=== PATIENT | female | born 1945 | race Two or more races ===

== ENCOUNTER 2017-11-24 09:57 | Emergency (ER) | payer MEDICARE, MEDICAID ==
[2017-11-24 10:54] LABS: Urine WBC None Seen /hpf (0 - 5)
[2017-11-24 11:00] LABS: Basophils # (auto) 0 uL; Basophils % (auto) 0.8 % (0.0-2.0); Eosinophils # (auto) 0.2 uL; Hematocrit 42.4 % (36.0-46.0); Hemoglobin 14.2 g/dL (12.2-16.2); Lymphocytes # (auto) 1.2 uL; Lymphocytes % (auto) 22.8 % (10.0-50.0); Mean Corpuscular Hemoglobin 29.8 pg (28.0-32.0); Mean Corpuscular Hgb Conc. 33.6 g/dL (32.0-36.0); Mean Corpuscular Volume 88.6 fL (80.0-100.0); Monocytes # (auto) 0.4 uL; Monocytes % (auto) 8.4 % (0.0-12.0); Neutrophils # (auto) 3.4 uL; Nucleated Red Blood Cells % 0.3 %; Platelet Count (auto) 233 10^3/uL (140-450); Red Blood Cells 4.78 10^6/uL (4.0-5.20); Red Cell Distribution Width 13.5 % (11.8-14.3); White Blood Cell 5.3 10^3/uL (4.4-10.8)
[2017-11-24 11:01] LABS: Urine Bacteria NONE SEEN /hpf (None Seen); Urine Blood Negative /uL (Negative); Urine Specific Gravity 1.007 (1.001-1.035)
[2017-11-24 11:23] LABS: Albumin 3.7 g/dL (3.4-5.0); BUN/Creatinine Ratio 15.7; Bilirubin, Total 1.3 mg/dL (0.2-1.0); Calcium 8.9 mg/dL (8.5-10.1); Potassium 4.4 mmol/L (3.5-5.1); Total Protein 7.7 g/dL (6.4-8.2)
[2017-11-24 15:33] LABS: Amylase 83 U/L (25-115); Lipase 169 U/L (73-393)
[2017-11-24 16:31] VITALS: BP 129/76
== END 2017-11-24 16:43 | disposition home or self-care (01) ==
LOC: ER 09:57
DX: K29.70 Gastritis, unspecified, without bleeding (principal); I72.8 Aneurysm of other specified arteries; I10 Essential (primary) hypertension; Z90.49 Acquired absence of other specified parts of digestive tract; Z88.0 Allergy status to penicillin
CPT/HCPCS: 36415; 74176; 80053; 81001; 82150; 83690; 85025; 93005

== ENCOUNTER 2024-11-20 09:52 | Inpatient (IN) | payer OTHER, MEDICAID ==
[2024-11-16 11:41] LABS: Basophils # (auto) 0 10 ^3/uL (0-0.2); Basophils % (auto) 0.5 % (0.0-2.0); Eosinophils # (auto) 0.3 10 ^3/uL (0-0.8); Eosinophils % (auto) 5.1 % (0.0-7.0); Hemoglobin 13.6 g/dL (12.2-16.2); Lymphocytes # (auto) 1.5 10 ^3/uL (0.4-5.4); Lymphocytes % (auto) 24.9 % (10.0-50.0); Mean Corpuscular Hemoglobin 30.3 pg (28.0-32.0); Mean Corpuscular Hgb Conc. 33.2 g/dL (32.0-36.0); Mean Corpuscular Volume 91.2 fL (80.0-100.0); Monocytes # (auto) 0.3 10 ^3/uL (0-1.3); Monocytes % (auto) 5.2 % (0.0-12.0); Neutrophils # (auto) 3.8 10 ^3/uL (1.6-8.6); Neutrophils % (auto) 64.3 % (37.0-80.0); Platelet Count (auto) 223 10^3/uL (140-450); Red Blood Cells 4.49 10^6/uL (4.0-5.20); Red Cell Distribution Width 12.9 % (11.8-14.3); White Blood Cell 5.8 10^3/uL (4.4-10.8)
[2024-11-16 12:05] LABS: Urine Bacteria FEW /hpf (None Seen); Urine Blood TRACE /uL (Negative); Urine Clarity Clear (Clear); Urine Color Light-Yellow (Yellow); Urine Protein, UAD Negative (Negative); Urine Specific Gravity 1.015 (1.001-1.035); Urine Squamous Epithelial Cell FEW /hpf (<5); Urine Urobilinogen Normal (Negative); Urine WBC 2 /HPF (0-5); Urine pH 6.5 (5.0-9.0)
[2024-11-16 12:07] LABS: INR 0.97 (0.9-1.15); Partial Thromboplastin Time 26.7 SEC (24.5-34.5); Prothrombin Time 10.3 sec (9.3-11.8)
[2024-11-16 13:17] LABS: Alanine Aminotransferase 21 U/L (7-40); Albumin 4.4 g/dL (3.2-4.8); Alkaline Phosphatase 101 U/L (46-116); Anion Gap 7 (5-15); Aspartate Aminotransferase 29 U/L (13-40); Blood Urea Nitrogen 15 mg/dL (9-23); Calcium 9.9 mg/dL (8.7-10.4); Carbon Dioxide 28 mmol/L (20-31); Chloride 104 mmol/L (98-107); Glucose 101 mg/dL (74-106); Potassium 4.7 mmol/L (3.5-5.1); Sodium 139 mmol/L (136-145); Total Protein 7.5 g/dL (5.7-8.2)
[~2024-11-20] VITALS: Ht 165.1 cm; Wt 90.3 kg
[~2024-11-20 09:52] MED LIST: CYAN50TA2 PO; ENAL1TAB47 PO
[2024-11-20] MEDS ORDERED: fentaNYL CITRATE 5 ML ONE (10:53)
[2024-11-20] MEDS ORDERED: KETAMINE 50mg/ML 1ml syringe ONE (10:53)
[2024-11-20] MEDS ORDERED: ETOMIDATE (2MG/ML) 20ML VIAL IV ONE (10:53)
[2024-11-20] MEDS ORDERED: LIDOCAINE 1% INJ PF 5ML AMP ONE (10:53)
[2024-11-20] MEDS ORDERED: DexAMETHasone SOD PHOS 10MG/1ML VIAL INJ ONE (10:53)
[2024-11-20] MEDS ORDERED: GLYCOPYRROLATE 0.2 MG/ML 1ML VIAL ONE (10:53)
[2024-11-20] MEDS ORDERED: ROCURONIUM 10MG/ML 10ML VIAL IV ONE (10:53)
[2024-11-20] MEDS ORDERED: fentaNYL CITRATE 100 MCG/2 ML VL ONE (10:53)
[2024-11-20] MEDS ORDERED: NEOSTIGMINE 1 MG/ML INJ (10mg/10ML VIAL) ONE (10:53)
[2024-11-20] MEDS ORDERED: MEPERIDINE HCL (25 MG/ML) 1ML VIAL ONE ×2 (10:53→16:01)
[2024-11-20] MEDS ORDERED: LIDOCAINE HCL 2% TOP JELLY 5ML TOP ONE (10:53)
[2024-11-20] MEDS ORDERED: SODIUM CHLORIDE LOCK 10 ML ONE (10:53)
[2024-11-20] MEDS ORDERED: ONDANSETRON HCL 4 MG/2 ML VIAL ONE (10:53)
[2024-11-20] MEDS ORDERED: MIDAZOLAM HCL 2MG/2ML 2ml VIAL (1mg/ml) ONE (10:53)
[2024-11-20] MEDS ORDERED: MORPHINE SULFATE INJ 2 MG/ml SYRG IV PRN ×3 (12:30→16:15)
[2024-11-20] MEDS ORDERED: MORPHINE SULFATE 4 MG/ML SYR/VIAL IV PRN (12:30)
[2024-11-20] MEDS ORDERED: HYDROmorphone HCL 2 MG/ML VL/or syr IV PRN ×2 (12:30)
[2024-11-20] MEDS: VASOPRESSIN 20 UNIT/ML ONE (12:44)
[2024-11-20] MEDS: ceFAZolin 1GM VL ONE (12:44)
[2024-11-20] MEDS: Lidocaine/Epinephrine 1%-1:100,000 30ML VL ONE (12:44)
[2024-11-20] MEDS: BUPIVACAINE HCL 0.25% P/F 10 ML VIAL ONE (12:44)
[2024-11-20] MEDS ORDERED: SUCCINYLCHOLINE CHLORIDE 20 MG/ML 10ML VIAL IV ONE (12:45)
[2024-11-20] MEDS: CONJ ESTROGENS 0.625MG/GM VAG CRM 30GM PV ONE (12:49)
[2024-11-20] MEDS: CLINDAMYCIN 300MG IV 50 ML IV ONE (13:20)
[2024-11-20] MEDS: CLINDAMYCIN 600MG IV 50 ML IV ONE (13:20)
[2024-11-20] MEDS ORDERED: NITROGLYCERIN 0.4 MG SL TAB SL PRN ×2 (13:45→16:15)
[2024-11-20] MEDS ORDERED: ONDANSETRON HCL 4 MG/2 ML VIAL IV PRN (13:45)
[2024-11-20] MEDS ORDERED: ACETAMINOPHEN 500 MG TAB or CAP PO PRN (13:45)
[2024-11-20] MEDS ORDERED: SUGAMMADEX 200mg/2ml Vial (100MG/ML) IV ONE (15:57)
--- NOTE | 2024-11-20 16:04 | DVHOP2 ---
Operative Report - 2 Report Details Date: 11/20/24 Preop Diagnosis: Pelvic prolapse, stress incontinence Postop Diagnosis: same.... dense left adnexal omental colonic adhesions Surgeon: Carole Loya Anesthesiologist: Jose BOURNE Anesthesia: General Drains: Shipman x 7 days Implant: With the uterus allergic Consent: The patient was informed of the risks and benefits of the procedure. These include but are not limited to complications of anesthesia, postoperative infection, incomplete relief of symptoms, recurrence of symptoms, damage to blood vessels, nerves and tendons, deep venous thrombosis, pulmonary embolism and possible need for repeat surgery in the future. Complications: none Estimated Blood Loss: 200cc Fluids: see anesthesia log Findings: Grade II uterine prolapse, Grade III cystocele, kinked UVJ nl ovary and tube rig ht unable to visualize left ovary and tube 2nd dense colonic and omental adhesions. Indications for Surgery: prolapse, pain, stress incontinence Name of Procedure Performed LSC assist vaginal hysterectomy, colpo sacral pexy, cystocele repair, urethral sling , partial vaginectomy Procedure Details Procedure Details: see faxed dictated detailed operative report Specimen: Uterus, vaginal mucosa, vaginal lesion Condition Good Disposition PACU ... I met daughter and over 5 familly members directly after the case PABLITO LOYA DO Nov 20, 2024 16:04
[2024-11-20 16:10] VITALS: PULSE 88; RESP 17; O2SAT 100
[2024-11-20] MEDS ORDERED: ONDANSETRON HCL 4 MG/2 ML VIAL IV ONE (16:30)
[2024-11-20] MEDS ORDERED: ACETAMINOPHEN IV 1000 MG/100ML (10MG/ML) IV PRN (16:30)
[2024-11-20] MEDS: ONDANSETRON HCL 4 MG/2 ML VIAL IV PRN (16:49)
[2024-11-20] MEDS: HYDROmorphone HCL 2 MG/ML VL/or syr IV PRN (17:02)
[2024-11-20 17:42] VITALS: BP 120/68; PULSE 95; RESP 16; TEMP 97.6; O2SAT 93
[2024-11-20] MEDS: KETOROLAC TROMETH 30 MG/ML 1ML VIAL IV ONE (18:35)
[2024-11-20] MEDS: SODIUM CHLORIDE 0.9% 1,000 ML IV SCH (18:35)
[2024-11-20] MEDS: METOCLOPRAMIDE HCL 5MG/ml INJ 2ml VIAL IV ONE (18:36)
[2024-11-20] MEDS: MORPHINE SULFATE 4 MG/ML SYR/VIAL IV PRN (18:43)
[2024-11-20 19:33] LABS: Basophils # (auto) 0 10 ^3/uL (0-0.2); Basophils % (auto) 0.1 % (0.0-2.0); Eosinophils # (auto) 0 10 ^3/uL (0-0.8); Eosinophils % (auto) 0.1 % (0.0-7.0); Hematocrit 33.8 % (36.0-46.0); Hemoglobin 11.2 g/dL (12.2-16.2); Lymphocytes # (auto) 0.3 10 ^3/uL (0.4-5.4); Lymphocytes % (auto) 2.7 % (10.0-50.0); Mean Corpuscular Hgb Conc. 33.2 g/dL (32.0-36.0); Mean Corpuscular Volume 90.6 fL (80.0-100.0); Monocytes # (auto) 0.3 10 ^3/uL (0-1.3); Monocytes % (auto) 2.5 % (0.0-12.0); Neutrophils # (auto) 9.4 10 ^3/uL (1.6-8.6); Neutrophils % (auto) 94.6 % (37.0-80.0); Nucleated Red Blood Cells % 0.1 %; Platelet Count (auto) 186 10^3/uL (140-450); Red Blood Cells 3.73 10^6/uL (4.0-5.20); Red Cell Distribution Width 12.8 % (11.8-14.3); White Blood Cell 9.9 10^3/uL (4.4-10.8)
[2024-11-20 20:00] VITALS: PULSE 89; RESP 20; O2SAT 98
[2024-11-20 20:30] VITALS: PULSE 125
[2024-11-20 21:00] VITALS: BP 111/68; PULSE 89; RESP 20; TEMP 97.7; O2SAT 98
[2024-11-21 01:00] VITALS: BP 108/67; PULSE 86; RESP 20; TEMP 98.2; O2SAT 98
[2024-11-21 05:00] VITALS: BP 103/64; PULSE 91; RESP 20; TEMP 97.6; O2SAT 96
--- NOTE | 2024-11-21 06:17 | DVHPN2 ---
Chief Complaints Patient reports: Feels better, Other (Patient ambulating tolerating her diet passing flatus pain control 01/04) Nursing reports: No new complaints, No chest pain, No dizziness, No cough Objective Vitals Vital Signs Date Time Temp Pulse Resp B/P (MAP) Pulse Ox O2 Delivery O2 Flow Rate FiO2 11/21/24 01:00 98.2 86 20 108/67 (81) 98 98.2 11/20/24 20:00 Nasal Cannula* 2 28 Medications Current Medications Medications (Trade) Dose Ordered Sig/Dann Route PRN Reason Start Time Stop Time Status Last Admin Enalapril Maleate (Vasotec Tablet) 10 mg DAILY PO 11/21/24 10:00 Morphine Sulfate 2 mg Q30M PRN IV FOR CHEST PAIN 11/20/24 13:45 Morphine Sulfate 2 mg Q4HP PRN IV SEVERE PAIN (7-10 PAIN SCALE) 11/20/24 13:45 11/20/24 18:43 Nitroglycerin (Ntrostat Sublingual) 0.4 mg Q5MINP PRN SL FOR CHEST PAIN 11/20/24 16:15 Ondansetron HCl (Zofran) 4 mg Q4HP PRN IV NAUSEA / VOMITING 11/20/24 13:45 11/20/24 16:49 Sodium Chloride 1,000 ml @ 80 mls/hr [id number] IV 11/20/24 13:45 11/21/24 04:53 General: Normal Head/Eyes: Normal Neck: Normal Lungs: Normal Cardiovascular: Normal Abdominal: Normal (Wounds clean dry and intact abdominal point binder in place) Musculoskeletal: Normal Extremities: Normal (No calf or leg pain no significant edema pneumatic stockings in place function) Skin: Normal Neurological: Normal Studies Laboratory Tests 11/16/24 11:20 Test 11/16/24 11:20 Range/Units Serum Glucose 101 74-106 mg/dL Ass/Plan Assessment Postop day 1 vaginal hysterectomy cystocele repair urethral sling partial vaginectomy Plan Advanced care see discharge summary see discharge orders PABLITO LOYA DO Nov 21, 2024 06:17
--- NOTE | 2024-11-21 06:23 | DVHDS2 ---
Discharge Summary Date of Admission Nov 20, 2024 at 13:31 Date of Discharge: Nov 21, 2024 Admitting Diagnosis Pelvic prolapse stress incontinence cystocele Wounds: Abdominal vaginal Labs/Diagnostic Data: Laboratory Results Test 11/21/24 05:25 11/20/24 19:06 11/16/24 11:20 Eosinophils (%) (Auto) 0.1 % (0.0-7.0) Eosinophils # (Auto) 0 10 ^3/uL (0-0.8) Basophils # (Auto) 0 10 ^3/uL (0-0.2) Nucleated Red Blood Cells 0.1 % Prothrombin Time 10.3 sec (9.3-11.8) Prothrombin Time INR 0.97 (0.9-1.15) Activated Partial Thromboplast Time 26.7 SEC (24.5-34.5) Urine Color Light-yellow (Yellow) Urine Clarity Clear (Clear) Urine pH 6.5 (5.0-9.0) Urine Specific Dieterich 1.015 (1.001-1.035) Urine Protein Negative (Negative) Urine Ketones Negative (Negative) Urine Blood Trace /uL (Negative) Urine Nitrite Negative (Negative) Urine Bilirubin Negative (Negative) Urine Urobilinogen Normal mg/dL (Negative) Urine Leukocyte Esterase Negative /uL (Negative) Urine RBC 1 /hpf (0 - 4) Urine Microscopic WBC 2 /HPF (0-5) Urine Squamous Epithelial Cells Few /hpf (<5) Urine Bacteria Few /hpf (None Seen) Urine Glucose Normal mg/dL (Normal) Sodium Level 139 mmol/L (136-145) Potassium Level 4.7 mmol/L (3.5-5.1) Chloride Level 104 mmol/L (98-107) Carbon Dioxide Level 28 mmol/L (20-31) Anion Gap 7 (5-15) Blood Urea Nitrogen 15 mg/dL (9-23) Creatinine 0.88 mg/dL (0.550-1.02) Glomerular Filtration Rate Calc 68 mL/min (>90) BUN/Creatinine Ratio 17.0 (10.0-20.0) Serum Glucose 101 mg/dL (74-106) Calcium Level 9.9 mg/dL (8.7-10.4) Total Bilirubin 1.0 mg/dL (0.2-1.0) Aspartate Amino Transferase (AST) 29 U/L (13-40) Alanine Aminotransferase (ALT) 21 U/L (7-40) Alkaline Phosphatase 101 U/L (46-116) Total Protein 7.5 g/dL (5.7-8.2) Albumin 4.4 g/dL (3.2-4.8) Other Laboratory Tests 11/16/24 11:20 Brief Hx & Hospital Course: Patient underwent vaginal hysterectomy laparoscopic assist with cystocele and urethral sling postop day 1 patient found stable for discharge home. Consults/Reason for consult n/a Operations or Procedures LSC assist vaginal hysterectomy, colpo sacral pexy, cystocele repair, urethral sling , partial vaginectomy Condition at Discharge: Good Final Diagnosis/Problems List Pelvic prolapse stress incontinence cystocele Discharge Disposition: Home SNF Discharge Will this Physician continue t: No Discharge Instruct/Medications Diet: Regular Activity: Light activity Activity comment: Pelvic rest 8 weeks okay shower only Follow Up/Referral: Patient to follow up 7 days for void trial Shipman removal; patient will be discharged with leg bag in training for Shipman x7 days; remove vaginal packing prior to discharge from hospital Medications: Resume home meds pharmacy has her postop prescription for pain antibiotics and stool softener Discharge Statement: "Patient was advised to return to the ER or call 911 if any headaches, dizziness, shortness of breath, chest pain, abdominal pain, bleeding, fevers, or worsening of medical condition. Patient was counseled about treatment plan, medications, possible side effects, patientverbalized understanding. All questions were answered to the best of my ability. This discharge took greater then 30 minutes in planning, reviewing documentation, counseling the patient, and discussing with other team members." ASSESSMENT ASSESSMENT Assessment Pelvic prolapse stress incontinence cystocele Visit Coding OBGYN Date of Service: Nov 21, 2024 Billing Provider: PABLITO LOYA DO SUPPLY CHAIN VICE PRESIDENT Common Visit Codes: PROCEDURE ONLY SUPPLY CHAIN VICE PRESIDENT Procedure Codes: 49135-[id number], SURG: W/PABLITO DANGELO DO Nov 21, 2024 06:23
[2024-11-21 07:11] LABS: Basophils # (auto) 0 10 ^3/uL (0-0.2); Eosinophils # (auto) 0 10 ^3/uL (0-0.8); Hematocrit 32.5 % (36.0-46.0); Hemoglobin 10.8 g/dL (12.2-16.2); Lymphocytes # (auto) 0.5 10 ^3/uL (0.4-5.4); Lymphocytes % (auto) 5.5 % (10.0-50.0); Mean Corpuscular Hemoglobin 30.4 pg (28.0-32.0); Mean Corpuscular Hgb Conc. 33.3 g/dL (32.0-36.0); Mean Corpuscular Volume 91.3 fL (80.0-100.0); Monocytes # (auto) 0.4 10 ^3/uL (0-1.3); Neutrophils # (auto) 8.5 10 ^3/uL (1.6-8.6); Neutrophils % (auto) 90.5 % (37.0-80.0); Platelet Count (auto) 211 10^3/uL (140-450); Red Blood Cells 3.55 10^6/uL (4.0-5.20); White Blood Cell 9.4 10^3/uL (4.4-10.8)
[2024-11-21 08:00] VITALS: PULSE 103; PULSE 94; RESP 19; O2SAT 97
[2024-11-21 09:00] VITALS: BP 113/73; PULSE 103; RESP 19; TEMP 98.6; O2SAT 97
[2024-11-21] MEDS ORDERED: ENALAPRIL MALEATE 10 MG TAB PO SCH (10:00)
[2024-11-21] MEDS: ENALAPRIL MALEATE 10 MG TAB PO SCH (10:17)
[2024-11-21 10:50] VITALS: BP 113/73; PULSE 103; RESP 19; TEMP 98.6; O2SAT 97
== END 2024-11-21 12:46 | disposition home or self-care (01) | DRG 743 ==
LOC: SUR 09:52 → OVERFLOW 13:31 → TELE-WESTW 17:51
PROVIDERS: ADMIT Obstetrics & Gynecology; ATTEND Obstetrics & Gynecology
PROC: 0TSD0ZZ Reposition Urethra, Open Approach (ICD-10-PCS; 2024-11-20)
PROC: 0UBG0ZZ Excision of Vagina, Open Approach (ICD-10-PCS; 2024-11-20)
PROC: 0USG0ZZ Reposition Vagina, Open Approach (ICD-10-PCS; 2024-11-20)
PROC: 0JQC0ZZ Repair Pelvic Region Subcutaneous Tissue and Fascia, Open Approach (ICD-10-PCS; 2024-11-20)
PROC: 0UT9FZZ Resection of Uterus, Via Natural or Artificial Opening With Percutaneous Endoscopic Assistance (ICD-10-PCS; principal; 2024-11-20 13:11)
DX: N81.4 Uterovaginal prolapse, unspecified (principal); K66.0 Peritoneal adhesions (postprocedural) (postinfection); N39.3 Stress incontinence (female) (male)
CPT/HCPCS: 36415; 80053; 81001; 85025; 85610; 85730; 86850; 86900; 86901; G0378; J0330; J0690; J1100; J2250; J2405; J3490

== ENCOUNTER 2024-11-22 15:08 | Inpatient (IN) | payer OTHER, MEDICAID ==
[~2024-11-22] VITALS: Ht 165.1 cm; Wt 90.0 kg
--- NOTE | 2024-11-22 15:37 | ED.PDOC ---
VAULT MAKER HPI Comments HPI: Poor Historian. HPI: 79 year old female presents to the ED with chief complaint of pelvic pain. Patient reports that she has been experiencing pelvic pain since having a total hysterectomy performed 2 days ago in [facility] by Dr. Supa Figueroa for pelvic prolapse according to operative note. Patient relays that she also has a ssociated vaginal spotting with no clots noted. Patient states she was prescribed antibiotics and pain medication, but does not remember the name of them. Patient denies any N/V/D, dizziness, fever, chills, chest pain, dysuria, or SOB. Initial Vital Signs: Temp : 97.3F BP: 119/69 HR: 130 RR: 18 SpO2: 98% Past Medical History: HTN, Pelvic Past Surgical History: Cholecystectomy, LSC assist vaginal hysterectomy, colpo sacral pexy, cystocele repair, urethral sling , partial vaginectomy Social History: Denies smoking, ETOH, or drug use. Medications: No medications. Allergies: Penicillins REVIEW OF SYSTEMS: CONSTITUTIONAL: Denies acute: fever, diaphoresis, chills, generalized weakness. HEAD: Denies acute: headache, photophobia Eyes: Denies acute: Double vision, vision loss, eye pain, eye discharge. EARS: Denies acute: tinnitus, hearing loss, ear discharge, ear pain, THROAT: Denies acute: sore throat, swelling, difficulty swallowing , pain with swallowing, change in voice. NECK: Denies acute: neck pain, neck swelling, stiff neck. HEART: Denies acute : chest pain, palpitations, LUNGS: Denies acute: SOB, wheezing, cough, hemoptysis ABDOMEN: Denies acute: Nausea, Vomiting, diarrhea, melena , hematemesis, hematochezia SKIN: Denies acute: rash, redness, lesions, itchiness. EXTREMITIES: Denies acute: calf pain, numbness, tingling, weakness, denies pain in extremity. Denies acute: Low back pain. Neuro: Denies acute: focal neurological deficit, motor or sensory focal neurological deficit, tremors, seizure like activity, confusion, dizziness, change in mental status, loss of bowel or bladder function, cauda equina like symptoms. : Denies acute: dysuria, hematuria, flank pain, increase in urinary frequency. PSYCH: Denies acute: hallucination, suicidal ideation, homicidal ideation. FEMALE: Denies acute: foul odor, unusual discharge. PHYSICAL EXAM: General: no acute distress, awake and alert. Head: normocephalic, atraumatic. Neck: supple, trachea is midline, no swelling. Throat: Normal phonation. Eyes:, no erythema, no purulent discharge, no proptosis, no icterus. Heart: regular rate, regular rhythm, no significant murmur appreciated. Lungs: no apparent respiratory distress, Able to speak in full sentences. No wheezing, no rhonchi, no crackles. No stridors Clear to auscultation bilaterally. Abdomen: non distended, soft, no guarding, no rebound, + bowel sounds. Evaluation of the surgical scars are clean dry and intact. Lower abdomen/pelvic tenderness to palpation. Neuro: Awake, Alert, oriented to name, self, situation, follows commands GCS=15. Speech is normal. Skin: no petechia, no purpura, no cyanosis, non-pale, not jaundice. Lower extremities: --no - Pitting edema no deformity, no focal swelling, no calf TTP. Makes eye contact. moves all four extremities. Face: no apparent facial droop. No CVA tenderness to percussion bilaterally. Ambulating in the ED independently. Ears: Normal appearing TM b/l, Stroke: finger to nose cerebellar testing is intact. No pronator drift. Symmetrical boat mechanic muscle strength b/l PERRLA, EOM-I CN 2-12 are grossly intact, Pedal pulses are palpable. No nystagmus. No nuchal rigidity, Kernig's sign, Brudzinski's sign, no meningeal signs. ED COURSE: Time Seen by MD: 15:35 Reviewed Notes: Medications, Allergies Allergies: Coded Allergies: Penicillins (Verified Allergy, Severe, 11/24/17) Home Meds Reported Medications Enalapril Maleate (Enalapril Maleate) 10 Mg Tab, 10 MG PO DAILY, TAB 11/16/24 Cyanocobalamin (Vitamin B-12) 50 Mcg Tab, PO, TAB 11/16/24 Information Source: Patient Mode of Arrival: Ambulatory Timing: Days Was a procedure done? Was a procedure done?: No Differential Diagnosis (WRINGER AND SETTER) Vaginal Bleeding: Other (DDX include Diverticulitis, colitis, gastroenteritis, acute abdomen, SBO, enteritis, constipation, volvulus, appendicitis, Gallbladder disease, choledocolithiasis, ascending cholangitis, pancreatitis, intraAbdominal mass/neoplasm, hepatitis, UTI, pylonephritis, kidney stone, aneurysm, dissection, Inflammatory bowel disease, gastroparesis, ischemic bowel, ovarian torsion, ovarian cyst/mass, tubo-ovarian abscess, , ectopic , PID, STD.), N/A X-Ray, Labs, Meds, VS Vital Signs Date Time Temp Pulse Resp B/P (MAP) Pulse Ox O2 Delivery O2 Flow Rate FiO2 11/22/24 18:26 105 18 95/50 (65) 96 11/22/24 18:26 74 16 98 Room Air* 0 21 11/22/24 15:37 97.3 130 18 119/69 (86) 98 Lab Test 11/22/24 16:45 11/22/24 15:50 Range/Units Troponin I High Sensitivity 5 4 </=34 ng/L White Blood Count 13.9 #H 4.4-10.8 10^3/uL Red Blood Count 3.49 L 4.0-5.20 10^6/uL Hemoglobin 10.7 L 12.2-16.2 g/dL Hematocrit 31.6 L 36.0-46.0 % Mean Corpuscular Volume 90.5 80.0-100.0 fL Mean Corpuscular Hemoglobin 30.5 28.0-32.0 pg Mean Corpuscular Hemoglobin Concent 33.7 32.0-36.0 g/dL Red Cell Distribution Width 12.9 11.8-14.3 % Platelet Count 217 140-450 10^3/uL Mean Platelet Volume 7.5 6.9-10.8 fL Neutrophils (%) (Auto) 84.2 H 37.0-80.0 % Lymphocytes (%) (Auto) 10.1 10.0-50.0 % Monocytes (%) (Auto) 5.3 0.0-12.0 % Eosinophils (%) (Auto) 0.2 0.0-7.0 % Basophils (%) (Auto) 0.2 0.0-2.0 % Neutrophils # (Auto) 11.7 H 1.6-8.6 10 ^3/uL Lymphocytes # (Auto) 1.4 0.4-5.4 10 ^3/uL Monocytes # (Auto) 0.7 0-1.3 10 ^3/uL Eosinophils # (Auto) 0 0-0.8 10 ^3/uL Basophils # (Auto) 0 0-0.2 10 ^3/uL Nucleated Red Blood Cells 0.0 % Sodium Level 137 136-145 mmol/L Potassium Level 4.1 3.5-5.1 mmol/L Chloride Level 102 98-107 mmol/L Carbon Dioxide Level 27 20-31 mmol/L Anion Gap 8 5-15 Blood Urea Nitrogen 23 9-23 mg/dL Creatinine 0.91 0.550-1.02 mg/dL Glomerular Filtration Rate Calc 65 >90 mL/min BUN/Creatinine Ratio 25.3 H 10.0-20.0 Serum Glucose 124 H 74-106 mg/dL Lactic Acid Level 1.9 0.4-2.0 mmol/L Calcium Level 9.0 8.7-10.4 mg/dL Magnesium Level 2.0 1.6-2.6 mg/dL Total Bilirubin 1.9 H 0.2-1.0 mg/dL Aspartate Amino Transferase (AST) 166 H 13-40 U/L Alanine Aminotransferase (ALT) 209 H 7-40 U/L Alkaline Phosphatase 208 H 46-116 U/L Total Protein 6.2 5.7-8.2 g/dL Albumin 4.0 3.2-4.8 g/dL Lipase 33 12-53 U/L Current Medications Medications (Trade) Dose Ordered Sig/Dann Route Start Time Stop Time Status Last Admin Acetaminophen/ Hydrocodone Bitart (Payette 5/325MG Tab) 1 tab ONCE ONCE PO 11/22/24 17:15 11/22/24 17:50 DC 11/22/24 18:03 Piperacillin Sod/ Tazobactam Sod 100 ml @ 100 mls/hr ONCE ONCE IV 11/22/24 17:15 11/22/24 18:14 DC 11/22/24 18:07 Time of 1ST Reevaluation: 16:35 Reevaluation 1ST: Unchanged Time of 2ND Reevaluation: 20:36 (The case was discussed with the admitting team (HPI, physical exam, labs and diagnostic tests that were available at the time of disposition, ED course, treatment plan) on the phone. They agreed to admit the patient to their service and assume care of this patient from this point forward. Nurse practitioner Chapis. I also placed a consult for the OB Gyne surgeon who operated on the patient Dr. Figueroa.) Time of 3RD Reevaluation: 20:53 (The case was discussed with the OB Gyne team on-call (HPI, physical exam, labs and diagnostic tests that were available at the time of disposition, ED course, treatment plan) on the phone. They agreed follow up patient in consult. No further recommendations. Dr. Hogan. ) Patient Education/Counseling: Diagnosis, Treatment Family Education/Counseling: No Family Present Comments Patient presented with the above HPI.--postoperative pelvic pain---workup was initiated. patient was found with the above mentioned diagnosis. the following medications were ordered: please refer to order lists of meds and tests obtained by myself Dr. Dumont. Patient ED course and VS have been stabilized. Patient has been reassessed in the ED and remained in a stable condition. Pertinent incidental findings were discussed with the patient and/or family. Patient/family voices understanding and is agreeable with plan. Patient has been observed in the ED adequate length of time to insure improvement/stability. Escalation of care considered: Consideration of escalation to observation or admission OB Gyne was consulted. Patient had leukocytosis. Empiric antibiotics initiated. Patient was ADMITTED to the medicine team for further evaluation and treatment of their presentation. However later I was made aware that the patient left against medical advice. All the reports of any imaging studies that were ordered by myself were reviewed by myself. Departure 1 Departure Time of Disposition: 17:26 Impression: Primary Impression: Elevated LFTs Additional Impressions: Post-operative pain Leukocytosis Pelvic pain Disposition: ADMITTED INPATIENT Admit to: Tele Condition: Guarded Discharged With: Self Critical Care Note Critical Care Time?: Yes (35 min-critical care time only) I personally scribed for THERON DUMONT DO ([email or web address]) on 11/22/24 at 15:37. Electronically submitted by Baltazar Kim ([email or web address]). I personally scribed for THERON DUMONT DO ([email or web address]) on 11/22/24 at 15:55. Electronically submitted by Baltazar Kim ([email or web address]). I personally scribed for THERON DUMONT DO ([email or web address]) on 11/22/24 at 17:26. Electronically submitted by Baltazar Kim ([email or web address]). THERON DUMONT DO Nov 22, 2024 15:37
[2024-11-22 16:06] LABS: Basophils # (auto) 0 10 ^3/uL (0-0.2); Basophils % (auto) 0.2 % (0.0-2.0); Eosinophils # (auto) 0 10 ^3/uL (0-0.8); Eosinophils % (auto) 0.2 % (0.0-7.0); Hematocrit 31.6 % (36.0-46.0); Hemoglobin 10.7 g/dL (12.2-16.2); Lymphocytes # (auto) 1.4 10 ^3/uL (0.4-5.4); Lymphocytes % (auto) 10.1 % (10.0-50.0); Mean Corpuscular Hemoglobin 30.5 pg (28.0-32.0); Mean Corpuscular Hgb Conc. 33.7 g/dL (32.0-36.0); Mean Corpuscular Volume 90.5 fL (80.0-100.0); Monocytes # (auto) 0.7 10 ^3/uL (0-1.3); Monocytes % (auto) 5.3 % (0.0-12.0); Neutrophils # (auto) 11.7 10 ^3/uL (1.6-8.6); Neutrophils % (auto) 84.2 % (37.0-80.0); Platelet Count (auto) 217 10^3/uL (140-450); Red Blood Cells 3.49 10^6/uL (4.0-5.20); Red Cell Distribution Width 12.9 % (11.8-14.3); White Blood Cell 13.9 10^3/uL (4.4-10.8)
--- NOTE | 2024-11-22 16:07 | DVH ---
CT ABDOMEN AND PELVIS WITHOUT CONTRAST CLINICAL HISTORY: post hysterectomy pain TECHNIQUE: Multiple contiguous axial images of the abdomen and pelvis without intravenous contrast. The images were reformatted degenerate coronal and sagittal reconstructions. All CT scans at this medical facility are performed using dose modulation techniques as appropriate t o a performed exam including the following:Automated exposure control was utilized; adjustment of the MA and/or KV according to patient size; and use of iterative reconstruction technique. Radiation Dose Information: CT Dose: CTDI volume is 13.72 mGy. Dose-length product is 785.7 mGy*cm Comparison: None FINDINGS: Evaluation of the abdomen and pelvis is limited without intravenous contrast. Gallbladder is surgically absent. The liver, pancreas, kidneys, adrenal glands, and spleen appear within normal limits. There is no gross evidence of abdominal lymphadenopathy. There is no free fluid or free air. The stomach grossly appears unremarkable. The small and large bowel loops demonstrate normal caliber . The appendix not readily seen in the right lower quadrant abdomen. There are no obvious secondary signs of acute appendicitis. The abdominal aorta and IVC appear within normal limits. There are postsurgical changes related to recent hysterectomy with fat stranding and soft tissue thic kening in the pelvis. There is no organized fluid collection. There is a Shipman catheter in the bladde r which is partially fluid-filled. Pelvic organ appears within normal limits. There is no gross evid ence of a pelvic mass. There is no free fluid collection. Lung bases are clear. There is no acute osseous abnormality. IMPRESSION: 1. There is fat stranding and soft tissue thickening in the pelvis likely postsurgical changes relate d to recent hysterectomy. There is no organized fluid collection. 2. Cholecystectomy. HS:Y
[2024-11-22 16:23] LABS: Anion Gap 8 (5-15); BUN/Creatinine Ratio 25.3 (10.0-20.0); Blood Urea Nitrogen 23 mg/dL (9-23); Carbon Dioxide 27 mmol/L (20-31); Chloride 102 mmol/L (98-107); Lipase 33 U/L (12-53); Potassium 4.1 mmol/L (3.5-5.1); Sodium 137 mmol/L (136-145)
[2024-11-22 16:24] LABS: Total Protein 6.2 g/dL (5.7-8.2)
[2024-11-22 16:40] LABS: Alanine Aminotransferase 209 U/L (7-40); Alkaline Phosphatase 208 U/L (46-116); Aspartate Aminotransferase 166 U/L (13-40); Bilirubin, Total 1.9 mg/dL (0.2-1.0); Glucose 124 mg/dL (74-106)
[2024-11-22] MEDS: HYDROcodone-ACET 5/325MG TAB PO ONE (18:03)
[2024-11-22] MEDS: PIPERACILLIN-TAZOB 3.375GM 100 ML IV ONE (18:07)
[2024-11-22 18:26] VITALS: BP 95/50; PULSE 74; RESP 16; O2SAT 98
[2024-11-22] MEDS ORDERED: ACETAMINOPHEN 325 MG TAB PO PRN (21:00)
[2024-11-22] MEDS ORDERED: SODIUM CHLORIDE 0.9% 1,000 ML IV ONE (21:00)
[2024-11-22] MEDS ORDERED: ONDANSETRON HCL 4 MG/2 ML VIAL IV PRN (21:00)
--- NOTE | 2024-11-23 00:04 | DVHHP2 ---
Admitting Diagnosis: Transaminitis, Pelvic Pain History of Present Illness History Source: Patient Exam Limitations: No limitations HPI Mrs. Allyson Quezada is a 79 year old female with a history of hypertension, status post hysterectomy x 2 days ago, indwelling jordan catheter presents with a chief complaint of pelvic pain. Patient reports that she has been experiencing pelvic pain since having a total hysterectomy performed 2 days ago in [facility] by Dr. Supa Figueroa for pelvic prolapse according to operative note. Patient relays that she also has associated vaginal spotting with no clots noted. Patient states she was prescribed antibiotics and pain medication, but does not remember the name of them. Patient denies any N/V/D, dizziness, fever, chills, chest pain, dysuria, or SOB. Patient was found to have elevated LFT's. Patient admitted for further evaluation. Home Meds Reported Medications Enalapril Maleate (Enalapril Maleate) 10 Mg Tab, 10 MG PO DAILY, TAB 11/16/24 Cyanocobalamin (Vitamin B-12) 50 Mcg Tab, PO, TAB 11/16/24 Past Medical History Cardiac: HTN Pulmonary: No pertinent Hx Central Nervous System: No pertinent Hx GI: No pertinent Hx Hemotology/Oncology: No pertinent Hx Hepatobiliary: No pertinent Hx Psychiatric: No pertinent Hx Musculoskeletal: No pertinent Hx Rheumotologic: No pertinent Hx Infectious Disease: No peritnent Hx ENT: No pertinent Hx Renal/: No pertinent Hx Endocrine: No pertinent Hx Dermatology: No pertinent Hx Past Surgical History: Hysterctomy, Other (Jordan catheter ) Patient Family History: Hypertension G8 MOTHER, Onset:50's - 60 Smoker: No Hx (Negative) Alocohol: None Drugs: None Lives with: With family Domestic Violence: Neg Review of Systems Constitutional: No symptom reported Ears, Nose, & Throat: No symptom reported Eyes: No symptom reported Pulmonary/Respiratory: No symptom reported Cardiovascular: No symptom reported Gastrointestinal: No symptom reported Genitourinary: No symptom reported Musculoskeletal: No symptom reported Skin: No symptom reported Psychiatric: No symptom reported Endocrine: No symptom reported Hemotologic/Lymphatic: No symptom reported All Other Systems Pelvic Pain H&P Exam Vital Signs Vital Signs Date Time Temp Pulse Resp B/P (MAP) Pulse Ox O2 Delivery O2 Flow Rate FiO2 11/22/24 18:26 105 18 95/50 (65) 96 11/22/24 18:26 Room Air* 0 21 11/22/24 15:37 97.3 General Appeara: Well developed, Well nourished, Normal Appearance Head Exam: Normal inspection Neck Exam: Normal inspection, Non-tender, Normal alignment Eye Exam: bilateral eye Normal inspection, bilateral eye PERRL, bilateral eye EOMI Ear Exam: bilateral ear Auricle normal Nasal Exam: Normal inspection Mouth: Normal Inspection Pulmonary/Respiratory: Normal inspection, Normal breath sounds, Chest non- tender, Lungs clear Cardiovascular/Chest: Normal inspection, Regular rate, Normal Rhythm Peripheral Pulses: 2+ dorsalis pedis (R), 2+ dorsalis pedis (L), 2+ Radial (R), 2+ Radial (L) Abdominal Exam: Normal bowel sounds, Soft, No tenderness Rectal Exam: Deferred [employer] Exam: Normal hearing, Normal speech, PERRL Motor/Sensory: Normal sensory function, Normal motor function Neuro/Mental St: Alert, Oriented Appearance: Appropriate appearance, Appropriate insight Eye contact/ Speech: Cooperative, Good eye contact, Normal speech Thoughts/Psych: Normal thought pattern Skin Exam: Normal inspection, Normal color, Warm/dry Labs/Xrays Labs Test 11/22/24 16:45 11/22/24 15:50 Range/Units Troponin I High Sensitivity 5 </=34 ng/L White Blood Count 13.9 #H 4.4-10.8 10^3/uL Red Blood Count 3.49 L 4.0-5.20 10^6/uL Hemoglobin 10.7 L 12.2-16.2 g/dL Hematocrit 31.6 L 36.0-46.0 % Mean Corpuscular Volume 90.5 80.0-100.0 fL Mean Corpuscular Hemoglobin 30.5 28.0-32.0 pg Mean Corpuscular Hemoglobin Concent 33.7 32.0-36.0 g/dL Red Cell Distribution Width 12.9 11.8-14.3 % Platelet Count 217 140-450 10^3/uL Mean Platelet Volume 7.5 6.9-10.8 fL Neutrophils (%) (Auto) 84.2 H 37.0-80.0 % Lymphocytes (%) (Auto) 10.1 10.0-50.0 % Monocytes (%) (Auto) 5.3 0.0-12.0 % Eosinophils (%) (Auto) 0.2 0.0-7.0 % Basophils (%) (Auto) 0.2 0.0-2.0 % Neutrophils # (Auto) 11.7 H 1.6-8.6 10 ^3/uL Lymphocytes # (Auto) 1.4 0.4-5.4 10 ^3/uL Monocytes # (Auto) 0.7 0-1.3 10 ^3/uL Eosinophils # (Auto) 0 0-0.8 10 ^3/uL Basophils # (Auto) 0 0-0.2 10 ^3/uL Nucleated Red Blood Cells 0.0 % Sodium Level 137 136-145 mmol/L Potassium Level 4.1 3.5-5.1 mmol/L Chloride Level 102 98-107 mmol/L Carbon Dioxide Level 27 20-31 mmol/L Anion Gap 8 5-15 Blood Urea Nitrogen 23 9-23 mg/dL Creatinine 0.91 0.550-1.02 mg/dL Glomerular Filtration Rate Calc 65 >90 mL/min BUN/Creatinine Ratio 25.3 H 10.0-20.0 Serum Glucose 124 H 74-106 mg/dL Lactic Acid Level 1.9 0.4-2.0 mmol/L Calcium Level 9.0 8.7-10.4 mg/dL Magnesium Level 2.0 1.6-2.6 mg/dL Total Bilirubin 1.9 H 0.2-1.0 mg/dL Aspartate Amino Transferase (AST) 166 H 13-40 U/L Alanine Aminotransferase (ALT) 209 H 7-40 U/L Alkaline Phosphatase 208 H 46-116 U/L Total Protein 6.2 5.7-8.2 g/dL Albumin 4.0 3.2-4.8 g/dL Lipase 33 12-53 U/L Assessment/Plan Problem List: (1) Elevated LFTs (2) Post-operative pain (3) Pelvic pain (4) Leukocytosis Plan This is a 79 o male with known history of hypertension, status post hysterectomy x 2 days ago who presents to the hospital with pelvic pain. Patient was found to have 1. Elevated LFT's 2. Pelvic Pain with spotting Plan Admit Telemetry [employer] consultation Gastroenterology consultation Empiric IV antibiotic Zosyn IV fluids Monitor LFT's Discussed all above with patient and patient daughter at bedside , both verbalized understanding and agreement of care plan. Discussed assessment and care plan with supervising MD. Addendum: Patient and patient daughter stated patient would like to go home AMA. Patient left AMA at 2349. Patient instructed to follow up with PCP , return to the ED if needed. Plan discussed with: Patient, Other (Daughter) Code Visit Code Visit Total Time (mins): 45 Additional Comments Additional Comments Additional Comments 72-year-old female who has a recent history of total hysterectomy presented to the hospital with a pelvic pain found to have elevated LFTs. Patient was seen by my nurse practitioner and I agree with the assessment and plan as outlined by my nurse practitioner. DONALDO JOHNSON Nov 23, 2024 00:04 SHANKAR HOGAN MD Nov 23, 2024 18:14
[2024-11-23] MEDS ORDERED: PIPERACILLIN-TAZOB 3.375GM 100 ML IV SCH (02:00)
[2024-11-23] MEDS ORDERED: PANTOPRAZOLE 40 MG/10 ML VIAL INJ IV SCH (10:00)
--- NOTE | 2024-11-23 18:15 | DVHDS2 ---
Discharge Summary Date of Admission Nov 22, 2024 at 20:47 Date of Discharge: Nov 22, 2024 Labs/Diagnostic Data: Laboratory Results Test 11/22/24 16:45 11/22/24 15:50 Troponin I High Sensitivity 5 ng/L (</=34) White Blood Count 13.9 10^3/uL (4.4-10.8) Red Blood Count 3.49 10^6/uL (4.0-5.20) Hemoglobin 10.7 g/dL (12.2-16.2) Hematocrit 31.6 % (36.0-46.0) Mean Corpuscular Volume 90.5 fL (80.0-100.0) Mean Corpuscular Hemoglobin 30.5 pg (28.0-32.0) Mean Corpuscular Hemoglobin Concent 33.7 g/dL (32.0-36.0) Red Cell Distribution Width 12.9 % (11.8-14.3) Platelet Count 217 10^3/uL (140-450) Mean Platelet Volume 7.5 fL (6.9-10.8) Neutrophils (%) (Auto) 84.2 % (37.0-80.0) Lymphocytes (%) (Auto) 10.1 % (10.0-50.0) Monocytes (%) (Auto) 5.3 % (0.0-12.0) Eosinophils (%) (Auto) 0.2 % (0.0-7.0) Basophils (%) (Auto) 0.2 % (0.0-2.0) Neutrophils # (Auto) 11.7 10 ^3/uL (1.6-8.6) Lymphocytes # (Auto) 1.4 10 ^3/uL (0.4-5.4) Monocytes # (Auto) 0.7 10 ^3/uL (0-1.3) Eosinophils # (Auto) 0 10 ^3/uL (0-0.8) Basophils # (Auto) 0 10 ^3/uL (0-0.2) Nucleated Red Blood Cells 0.0 % Sodium Level 137 mmol/L (136-145) Potassium Level 4.1 mmol/L (3.5-5.1) Chloride Level 102 mmol/L (98-107) Carbon Dioxide Level 27 mmol/L (20-31) Anion Gap 8 (5-15) Blood Urea Nitrogen 23 mg/dL (9-23) Creatinine 0.91 mg/dL (0.550-1.02) Glomerular Filtration Rate Calc 65 mL/min (>90) BUN/Creatinine Ratio 25.3 (10.0-20.0) Serum Glucose 124 mg/dL (74-106) Lactic Acid Level 1.9 mmol/L (0.4-2.0) Calcium Level 9.0 mg/dL (8.7-10.4) Magnesium Level 2.0 mg/dL (1.6-2.6) Total Bilirubin 1.9 mg/dL (0.2-1.0) Aspartate Amino Transferase (AST) 166 U/L (13-40) Alanine Aminotransferase (ALT) 209 U/L (7-40) Alkaline Phosphatase 208 U/L (46-116) Total Protein 6.2 g/dL (5.7-8.2) Albumin 4.0 g/dL (3.2-4.8) Lipase 33 U/L (12-53) Other Laboratory Tests 11/22/24 15:50 Brief Hx & Hospital Course: 79-year-old female with a recent history of total hysterectomy presented to the hospital with pelvic pain found to have elevated LFTs. Patient also has a leukocytosis. Patient was complaining of vaginal spotting. Patient left against medical advice before completion of workup and treatment. Condition at Discharge: Undetermined Final Diagnosis/Problems List 1. Transaminitis 2. Leukocytosis 3. Pelvic pain with vaginal spotting 4. Status post recent hysterectomy Discharge Disposition: AMA [facility] Discharge Will this Physician continue t: No Discharge Statement: "Patient was advised to return to the ER or call 911 if any headaches, dizziness, shortness of breath, chest pain, abdominal pain, bleeding, fevers, or worsening of medical condition. Patient was counseled about treatment plan, medications, possible side effects, patientverbalized understanding. All questions were answered to the best of my ability. This discharge took greater then 30 minutes in planning, reviewing documentation, counseling the patient, and discussing with other team members." ASSESSMENT ASSESSMENT Assessment Date of Service: Nov 22, 2024 Billing Provider: SHANKAR HOGAN MD Common Visit Codes: NOT BILLABLE SHANKAR HOGAN MD Nov 23, 2024 18:15
== END 2024-11-22 23:49 | disposition left against medical advice (07) | DRG 761 ==
LOC: ER 15:08 → OVERFLOW 20:47
PROVIDERS: ADMIT Nurse Practitioner Family; ATTEND Nurse Practitioner Family
DX: N93.9 Abnormal uterine and vaginal bleeding, unspecified (principal); I10 Essential (primary) hypertension; D72.829 Elevated white blood cell count, unspecified; R79.89 Other specified abnormal findings of blood chemistry; Z53.29 Procedure and treatment not carried out because of patient's decision for other reasons; R74.01 Elevation of levels of liver transaminase levels; Z90.710 Acquired absence of both cervix and uterus; Z90.49 Acquired absence of other specified parts of digestive tract; Z79.899 Other long term (current) drug therapy; Z87.891 Personal history of nicotine dependence; Z82.49 Family history of ischemic heart disease and other diseases of the circulatory system
CPT/HCPCS: 36415; 74176; 80053; 83605; 83690; 83735; 84484; 85025; 96365; 99291; G0378; J2543